=== PATIENT | female | born 1965 | race Caucasian/White ===

== ENCOUNTER 2020-09-13 18:58 | Emergency (ER) | payer MEDICAID ==
[~2020-09-13] VITALS: Ht 147.3 cm; Wt 63.6 kg
[2020-09-13 19:00] VITALS: BP 134/92
[2020-09-13] MEDS ORDERED: TETANUS & DIPHTHERIA TOX,ADULT 0.5 ML (TENIVAC) IM ONE (19:15)
--- NOTE | 2020-09-13 19:17 | ED Integumentary General ---
General Chief Complaint: Bite-Animal/Human/Insect Stated Complaint: DOG BITE ON LT WRIST Source: patient Exam Limitations: no limitations History of Present Illness Date Seen by Provider: Sep 13, 2020 Time Seen by Provider: 19:08 Initial Comments Patient is a 55-year-old female who presents to the emergency department today with a chief complaint of dog bite. Patient states that her little dog got in a fight with a pit bull and another larger dog, she was trying to separate the 2 when she got bit on the left arm. Patient also sustained a scratch to her right upper arm. Patient denies any other complaints of injuries. She denies any numbness tingling or weakness to her left hand. Patient's last tetanus is un known. All other review of systems reviewed and negative except as stated. Timing/Duration: just prior to arrival, this evening Severity: mild Location: extremities (Left wrist) Possible Cause: other (Dog bite) Associated Symptoms: denies symptoms Allergies and Home Medications Allergies Coded Allergies: No Known Drug Allergies (Unverified , 09/13/20) Home Medications Amoxicillin/Potassium Clav 1 Each Tablet, 1 EACH PO BID Prescribed by: PATRICK RICE on 09/13/20 193 Patient Home Medication List Home Medication List Reviewed: Yes Review of Systems Review of Systems Constitutional: no symptoms reported EENTM: no symptoms reported Respiratory: no symptoms reported Cardiovascular: no symptoms reported Gastrointestinal: no symptoms reported Genitourinary: no symptoms reported Musculoskeletal: no symptoms reported Skin: other (Laceration x2 left wrist) Psychiatric/Neurological: Other (Essential tremors, history of) All Other Systems Reviewed Negative Unless Noted: Yes Physical Exam Vital Signs Vital Signs - First Documented 09/13/20 19:00 Temp 37.0 Pulse 91 Resp 18 B/P (MAP) 134/92 (106) Pulse Ox 98 O2 Delivery Room Air Capillary Refill : General Appearance: WD/WN, no apparent distress, thin HEENT: PERRL/EOMI Cardiovascular: regular rate, rhythm Respiratory: lungs clear, normal breath sounds, no respiratory distress, no accessory muscle use Gastrointestinal: normal bowel sounds, non tender, soft Extremities: normal range of motion, non-tender, normal capillary refill Neurologic/Psychiatric: no motor/sensory deficits, alert, normal mood/affect, oriented x 3 Skin: normal color, warm/dry, other (Lacerations x2 to the volar aspect of the medial wrist, both are approximately 1-1/2 cm, no active bleeding, the more proximal laceration extends into subcutaneous fat. surrounding ecchymoses) Progress/Results/Core Measures Results/Orders My Orders Orders - PATRICK RICE MD Tetanus/Diphtheria Inj (Adult) (Tenivac (09/13/20 19:15) Dipht,Pertuss(Acell),Tet Adult (Boostrix (09/13/20 19:30) Medications Given in ED Current Medications Medications Dose Ordered Sig/Vahid Route Start Time Stop Time Status Last Admin Dose Admin Diphtheria/ Tetanus/Acell Pertussis 0.5 ml ONCE ONCE IM 09/13/20 19:30 09/13/20 19:31 DC 09/13/20 19:20 0.5 ML Vital Signs/I&O 09/13/20 19:00 Temp 37.0 Pulse 91 Resp 18 B/P (MAP) 134/92 (106) Pulse Ox 98 O2 Delivery Room Air Progress Progress Note : Time: 19:16 Progress Note 55-year-old female presents with a chief complaint of dog bite to the left wrist. Patient states that the deputy sheriff lieutenant's department was called regarding the dog bite. Patient has 2 wounds to the left wrist both of which are not bleeding. They are small approximately 1 cm. Small amount of subcutaneous fat extends to the more proximal wound. These will be cleaned out with Betasept and saline. Patient's tetanus shot will be updated. Patient will be sent home on Augmentin. 1927 Wound was extensively irrigated and cleaned with Betasept. Wound continued to demonstrate no active bleeding. Wound was dressed with Neosporin, Telfa and a dry gauze dressing. Nursing contacted the deputy sheriff lieutenant's department to make sure that the dog in question was quarantined or at least had its rabies vaccinations. The deputy sheriff lieutenant's department stated that they did not inquire the liner reroll tender of the dog that this patient supposed to follow-up with the deputy sheriff lieutenant's department tomorrow to further inquire about the dog's vaccination status. If the patient is unable to confirm the dog's vaccination status she is going to be instructed to come back to the emergency department to start the rabies series. Patient verbalized understanding of the plan of care is comfortable with plan of care all questions were sought and answered and she is stable for discharge. Departure Impression Primary Impression: Dog bite Qualified Codes: W54.0XXA - Bitten by dog, initial encounter Disposition: 01 HOME, SELF-CARE Condition: Stable Departure-Patient Inst. Referrals: SELFGERSON MD (PCP/Family) Primary Care Physician Patient Instructions: Animal Bites (DC) Add. Discharge Instructions: Keep the wounds clean dry and covered for the next several days. When you do dressing changes use Neosporin on the wounds. Please call your primary care doctor's office on Monday for a follow-up appointment and a wound recheck next week. Please take the antibiotics I have prescribed twice a day for the next 5 days. Return to the emergency room if you have any increased redness, swelling, drainage from the wounds, increased pain or any other concerning findings. FOLLOW UP WITH THE STRATEGIC PLANNING ANALYST'S DEPARTMENT TOMORROW TO FIND OUT IF THE DOG THAT BIT YOU IS RABIES VACCINATED AND IF IT WAS QUARATINED. IF YOU CANNOT FIND THIS OUT YOU WILL NEED TO COME BACK TO THE EMERGENCY ROOM TO BE RABIES VACCINATED. Scripts Amoxicillin/Potassium Clav (Augmentin 875-125 Tablet) 1 Each Tablet 1 EACH PO BID, #10 TAB 0 Refills Prov: PATRICK RICE MD 09/13/20 PATRICK RICE MD Sep 13, 2020 19:17
[2020-09-13] MEDS ORDERED: TETANUS,DIPTH,PERTUSS P/F (BOOSTRIX) 0.5 ML VIAL IM ONE (19:30)
[2020-09-13] MEDS ORDERED: AMOX-358 PO (19:30)
--- NOTE | 2020-09-13 19:32 | NUR ---
[facility] if [facility] was determined if the dog that bit the patient had been vaccinated against rabies. Dispatch states that Workforce Planning Analyst 2 had taken the report and he was gone for the day. She states there is nothing in his notes that state the dog was vaccinated and the dog was not seized and put in quaratine. Plating Technician office states to have the patient contact them tomorrow to follow up for additional information.
== END 2020-09-13 19:57 | disposition home or self-care (01) ==
LOC: EDUNIT# 18:58 → ER FS 18:59
DX: S61.552A Open bite of left wrist, initial encounter (principal); S61.512A Laceration without foreign body of left wrist, initial encounter; S40.811A Abrasion of right upper arm, initial encounter; Z23 Encounter for immunization; W54.0XXA Bitten by dog, initial encounter
CPT/HCPCS: 90715

== ENCOUNTER 2022-05-11 13:00 | Outpatient (CLI) | payer MEDICAID ==
[~2022-05-11 13:00] MED LIST: AMOX-358 PO
== END 2022-05-11 13:26 ==
LOC: SLEEP 13:00
PROVIDERS: ATTEND Family Medicine
DX: G47.30 Sleep apnea, unspecified (principal)
CPT/HCPCS: G0399